=== PATIENT | male | born 2000 | race Two or more races ===

== ENCOUNTER 2024-10-01 09:57 | Emergency (ER) | payer MEDICAID, OTHER ==
[~2024-10-01] VITALS: Ht 190.5 cm; Wt 184.5 kg
[2024-10-01 10:19] VITALS: TEMP 99.1
--- NOTE | 2024-10-01 10:55 | ED.PDOC ---
Eye-HPI HPI Comments 24 y.o male presents to the ED for a chief complaint of bilateral ear pain. Patient reports developing right sided ear pain radiating down his right side neck x 3 days ago followed by left ear pain x 1 day ago. Patient denies any recent travel at high altitude, swimming, ear discharge, trauma, or jaw pain. Patient denies medical history or allergies. Chief Complaint: Earache Time Seen by MD: 10:50 Reviewed Notes: Nurses Notes, Medications, Allergies Allergies: Coded Allergies: NO KNOWN ALLERGIES (Unverified , 10/01/24) Home Meds Active Scripts [id number] (Otic) (Cortisporin Otic Susp) [address], 3 DROP EACH EAR TID, #10 ML Prov:SARINA BROWNING MD 10/01/24 Sulfamethoxazole W/Trimethopri (Bactrim Ds Tablet) 1 Tab Tb, 1 TAB PO BID for 5 Days, #10 TAB Prov:SARINA BROWNING MD 10/01/24 Information Source: Patient Mode of Arrival: Ambulatory Timing: Days (3) Duration: Since onset (3) ENT Ear Exam: Tender Onset: Spontaneous Associated signs and symptoms: Ear Pain Past Medical History PAST MEDICAL HISTORY: Denies Surgical History: Denies all surgeries Surgical History (Other): left arm Family History Family History: Reviewed,noncontributory to illness Social History Smoker: Non-Smoker Alcohol: Denies ETOH Use Drugs: Denies Drug Use Lives In: Home Constitutional: denies: chills, diaphoresis, fatigue, fever, malaise, sweats, weakness, others EENTM: reports: ear pain; denies: blurred vision, double vision, ear bleeding, ear discharge, ear drainage, ear ringing, eye pain, eye redness, hearing loss, mouth pain, mouth swelling, nasal discharge, nose bleeding, nose congestion, nose pain, photophobia, tearing, throat pain, throat swelling, voice changes, o thers Respiratory: denies: cough, hemoptysis, orthopnea, SOB at rest, shortness of breath, SOB with excertion, stridor, wheezing, others Cardiovascular: denies: chest pain, dizzy spells, diaphoresis, Dyspnea on e xertion, edema, irregular heart beat, left arm pain, lightheadedness, palpitations, PND, syncope, others Gastrointestinal: denies: abdomen distended, abdominal pain, blood streaked bowels, constipated, diarrhea, dysphagia, difficulty swallowing, hematemesis, melena, nausea, poor appetite, poor fluid intake, rectal bleeding, rectal pain, vomiting, others Genitourinary: denies: burning, dysuria, flank pain, frequency, hematuria, incontinence, penile discharge, penile sore, pain, testicle pain, testicle swelling, urgency, others Neurological: denies: dizziness, fainting, headache, left sided numbness, left sided weakness, numbness, paresthesia, pre-existing deficit, right sided numbness, right sided weakness, seizure, speech problems, tingling, tremors, weakness, others Musculoskeletal: denies: back pain, gout, joint pain, joint swelling, muscle pain, muscle stiffness, neck pain, others Integumetry: denies: bruises, change in color, change in hair/nails, dryness, laceration, lesions, lumps, rash, wounds, others Allergic/Immunocompromised: denies: Difficulty Healing, Frequent Infections, Hives, Itching, others Hematologic/Lymphatic: denies: anemia, blood clots, easy bleeding, easy bruising, swollen glands, others Endocrine: denies: excessive hunger, excessive sweating, excessive thirst, excessive urination, flushing, intolerance to cold, intolerance to heat, unexplained weight gain, unexplained weight loss, others Psychiatric: denies: anxiety, bipolar disorder, depression, hopeless, panic disorder, schizophrenia, sleepless, suicidal, others All Other Systems: Reviewed and Negative Physical Exam General Appearance: Mild Distress HEENT: Pharynx Normal, TM Abnormal (L), TM Abnormal (R), TMs Normal Neck: Full Range of Motion, Non-Tender, Normal, Normal Inspection Respiratory: Chest Non-Tender, Lungs Clear, No Accessory Muscle Use, No Respiratory Distress, Normal Breath Sounds Cardiovascular: No Edema, No JVD, No Murmur, No Gallop, Normal Peripheral Pulses, Regular Rate/Rhythm Breast Exam: Deferred Gastrointestinal: No Organomegaly, Non Tender, No Pulsatile Mass, Normal Bowel Sounds, Soft Genitalia: Deferred Pelvic: Deferred Rectal: Deferred Extremities: No calf tenderness, Normal capillary refill, Normal inspection, Normal range of motion, Non-tender, No pedal edema Musculoskeletal : Apperance: Normal Neurologic: Alert, 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 Was a procedure done?: No EENT DIFF Eye: N/A Ear: Cerumen Impaction, Otitis Externa, Otitis Media, Sinusitis, TMJ Syndrome X-Ray, Labs, Meds, VS Vital Signs Date Time Temp Pulse Resp B/P (MAP) Pulse Ox O2 Delivery O2 Flow Rate FiO2 10/01/24 10:19 99.1 93 19 151/91 (111) 97 99.1 The patient is being discharged on Bactrim and corticosporin ear drops Time of 1ST Reevaluation: 10:53 Reevaluation 1ST: Unchanged Patient Education/Counseling: Diagnosis, Treatment, Prognosis, Need For Follow Up Family Education/Counseling: No Family Present SEPSIS Sepsis Screen Date sepsis recognized/suspect: Oct 01, 2024 Time Sepsis recognized/suspect: 1014 Recent Procedure: No On Antibiotic Therapy: No Respiratory Rate >20: No Heart Rate >90: Yes Temp<36 C (96.8 F) or >38.3 C: No SBP <90 or MAP <65 mmHG: No New Acute Mental Status Change: No Is the patient on CPAP, BIPAP,: No Vital Signs Date Time Temp Pulse Resp B/P (MAP) Pulse Ox O2 Delivery O2 Flow Rate FiO2 10/01/24 10:19 99.1 93 19 151/91 (111) 97 99.1 Departure 1 Departure Time of Disposition: 11:00 Impression: Primary Impression: Otitis externa Qualified Codes: H60.503 - Unspecified acute noninfective otitis externa, bilateral Disposition: HOME / SELF CARE / HOMELESS Condition: Fair e-Prescriptions [id number]-[id number] (Otic) (Cortisporin Otic Susp) [address] 3 DROP EACH EAR TID, #10 ML Prov: SARINA BROWNING MD 10/01/24 Sulfamethoxazole W/Trimethopri (Bactrim Ds Tablet) 1 Tab Tb 1 TAB PO BID for 5 Days, #10 TAB Prov: SARINA BROWNING MD 10/01/24 Discharged With: Self Critical Care Note Critical Care Time?: No Stability Stability form required: No I personally scribed for SARINA BROWNING MD ([email or web address]) on 10/01/24 at 10:55. Electronically submitted by Rose Gregorio ([facility]LY [facility]). SARINA BROWNING MD Oct 01, 2024 10:55
[2024-10-01] MEDS ORDERED: BACDST PO (10:56)
[2024-10-01] MEDS ORDERED: COROSUS EACH EAR (10:56)
[2024-10-01 11:12] VITALS: BP 123/79; PULSE 87; RESP 18; O2SAT 97
== END 2024-10-01 11:16 | disposition home or self-care (01) ==
LOC: ER 10:03
DX: H60.93 Unspecified otitis externa, bilateral (principal); Z98.890 Other specified postprocedural states; Z79.899 Other long term (current) drug therapy